=== PATIENT | female | born 1950 | race Caucasian/White ===

== ENCOUNTER 2019-03-18 13:55 | Outpatient (CLI) | payer MEDICARE, OTHER ==
--- NOTE | 2019-03-18 14:23 | MMO ---
Bilateral MAMMO Bilat Screen [facility]. CLINICAL HISTORY: Patient is 69 years old and is seen for screening. VIEWS: The views performed were: bilateral craniocaudal with tomosynthesis and bilateral mediolateral oblique with tomosynthesis. This study has been interpreted with the assistance of computer-aided detection. MAMMOGRAM FINDINGS: The breasts are heterogeneously dense, which could obscure a lesion on mammography. There are benign appearing calcifications seen in both breasts. There are no suspicious masses, suspicious calcifications, or areas of architectural distortion. IMPRESSION: THERE IS NO MAMMOGRAPHIC EVIDENCE OF MALIGNANCY. A ROUTINE FOLLOW-UP MAMMOGRAM IN 1 YEAR IS RECOMMENDED. THE RESULTS OF THIS EXAM WERE SENT TO THE PATIENT. ACR BI-RADS Category 2 - Benign finding MAMMOGRAPHY NOTE: 1. A negative mammogram report should not delay a biopsy if a dominant of clinically suspicious mass is present. 2. Approximately 10% to 15% of breast cancers are not detected by mammography. 3. Adenosis and dense breasts may obscure an underlying neoplasm. Reported by: PHAM BURLESON MD Electonically Signed: [id number]
--- NOTE | 2019-03-18 14:57 | BD ---
DEXA SCAN: 03/18/2019 PROVIDED CLINICAL HISTORY: Postmenopausal screening. FINDINGS: LUMBAR SPINE BMD (g/cm2) T-SCORE L1 0.855 -1.2 L2 0.956 -0.7 L3 0.973 -1.0 L4 0.899 -1.5 TOTAL 0.924 -1.1 FEMORAL NECK 0.627 -2.0 TOTAL 0.753 -1.6 The ten year fracture risk for a major osteoporotic fracture is 10% and for a hip fracture is 1.6%. IMPRESSION: The calculated bone mineral density meets WHO criteria for osteopenia and places the patient at incre ased risk for fracture. POS: OFF
== END 2019-03-18 13:56 | disposition home or self-care (01) ==
LOC: BICMAMMO 13:55
PROVIDERS: ATTEND Specialist
DX: Z12.31 Encounter for screening mammogram for malignant neoplasm of breast (principal); M81.0 Age-related osteoporosis without current pathological fracture; M85.89 Other specified disorders of bone density and structure, multiple sites
CPT/HCPCS: 77063; 77067; 77080

== ENCOUNTER 2020-06-16 14:43 | Outpatient (CLI) | payer MEDICARE, OTHER ==
[~2020-06-16 14:43] MED LIST: Magnevist 469MG/ML 20 ML VIAL ONE
--- NOTE | 2020-06-16 16:40 | MRI ---
MRI OF THE BRAIN WITH AND WITHOUT IV CONTRAST: 06/16/20 HISTORY: Memory loss. COMPARISON: 04/08/07. FINDINGS: There is a tiny focus of restricted diffusion in the anteromedial aspect of the right frontal lobe. T here are a few foci of T2 prolongation of the periventricular and subcortical white matter consistent with minimal chronic small vessel ischemic disease. The ventricular size is appropriate and the basi lar cisterns patent. No hemorrhage, midline shift, or abnormal extra-axial fluid collections are seen . No mass or abnormal postcontrast enhancement is noted. The visualized paranasal sinuses and mastoid air cells are well aerated. IMPRESSION: 1. Tiny acute lacunar infarct in the right frontal lobe. 2. No evidence of intracranial mass. POS: OFF
== END 2020-06-16 14:44 | disposition home or self-care (01) ==
LOC: BICMRI 14:43
PROVIDERS: ATTEND Specialist
DX: R41.3 Other amnesia (principal); I63.81 Other cerebral infarction due to occlusion or stenosis of small artery
CPT/HCPCS: 70553; 82565; A9579

== ENCOUNTER 2021-04-06 09:07 | Day surgery (SDC) | payer MEDICARE, OTHER ==
[2021-04-06 09:41] VITALS: BMI 22.8
[2021-04-06 11:03] VITALS: TEMP 98.7
[2021-04-06 11:40] VITALS: BP 167/87
[2021-04-06 13:43] LABS: Ref Lab Test Ordered BETA AMYLOID 42/40; Reference Lab Name LABCORP
== END 2021-04-06 11:40 | disposition home or self-care (01) ==
LOC: RAD 09:07
PROVIDERS: ATTEND Specialist
PROC: 009U3ZX Drainage of Spinal Canal, Percutaneous Approach, Diagnostic (ICD-10-PCS; principal; 2021-04-06)
DX: G30.9 Alzheimer's disease, unspecified (principal); F02.80 Dementia in other diseases classified elsewhere, unspecified severity, without behavioral disturbance, psychotic disturbance, mood disturbance, and anxiety; M43.16 Spondylolisthesis, lumbar region; N95.9 Unspecified menopausal and perimenopausal disorder; F41.1 Generalized anxiety disorder; I95.1 Orthostatic hypotension; Z88.0 Allergy status to penicillin; Z88.2 Allergy status to sulfonamides; Z88.5 Allergy status to narcotic agent; Z88.8 Allergy status to other drugs, medicaments and biological substances
CPT/HCPCS: 62270

== ENCOUNTER 2022-01-11 12:24 | Outpatient (CLI) | payer MEDICARE | END 2022-01-11 12:25 | disposition home or self-care (01) | LOC: SCSMRI 12:24 | PROVIDERS: ATTEND Specialist | DX: F03.90 Unspecified dementia, unspecified severity, without behavioral disturbance, psychotic disturbance, mood disturbance, and anxiety (principal) | CPT/HCPCS: 70553 ==

== ENCOUNTER 2022-08-29 00:07 | Observation (INO) | payer MEDICARE ==
[2022-08-29 00:44] LABS: Hemoglobin 12.3 g/dL (12.0-16.0); Mean Corpuscular HGB CONC 34.4 g/dL (32.0-36.0); Mean Corpuscular Hemoglobin 30.8 pg (27.0-31.0); Mean Corpuscular Volume 89.6 fl (78.0-98.0); Mean Platelet Volume 5.9 fL (7.4-10.4); Platelet Count 342 10x3/uL (130-400); RBC Distribution Width 12.1 % (11.5-14.5); Red Blood Cell (RBC) Count 3.99 mill/uL (4.20-5.40); White Blood Cell (WBC) Count 9.8 10x3/uL (4.8-10.8)
[2022-08-29 01:02] LABS: ALT (SGPT) 15 U/L (8-55); AST (SGOT) 18 U/L (5-34); Albumin 4.2 g/dL (3.4-4.8); Alkaline Phosphatase 58 U/L (40-110); Anion Gap 14 mmol/L (10-20); BUN (Urea Nitrogen) 10 mg/dL (9.8-20.1); Bilirubin, Total 0.3 mg/dL (0.2-1.2); Calc. Creatinine Clearance 0 mL/min (70-130); Calcium 9.5 mg/dL (7.8-10.44); Carbon Dioxide 24 mmol/L (23-31); Chloride 101 mmol/L (98-107); Estimated GFR 74; Globulin 2.2 g/dL (2.4-3.5); Glucose 106 mg/dL (80-115); Potassium 3.5 mmol/L (3.5-5.1); Protein, Total 6.4 g/dL (5.8-8.1); Sodium 135 mmol/L (136-145)
[2022-08-29 01:07] LABS: Eosinophils 1 % (0-10); Lymphocytes 44 % (21-51); MDiff Complete? YES; Monocytes 2 % (0-10); Neutrophil 38 % (42-75); Reactive Lymphocytes 15 % (0-10)
[2022-08-29] MEDS ORDERED: Aspirin Chewable 81 MG TAB ONE (02:11)
[2022-08-29 05:04] LABS: Troponin I Less than 0.010 ng/mL (< 0.028)
[2022-08-29 05:34] VITALS: BMI 24.1
[2022-08-29] MEDS ORDERED: Ondansetron ODT 4 MG TAB SL PRN (05:45)
[2022-08-29] MEDS ORDERED: Ondansetron PF 4 MG/2 ML Vial IVP PRN (05:45)
[2022-08-29] MEDS ORDERED: Acetaminophen 325 MG TAB PO PRN (05:45)
[2022-08-29] MEDS ORDERED: Zolpidem Tartrate 5 MG TAB PO PRN (07:57)
[2022-08-29] MEDS ORDERED: Ipratropium/Albuterol 3 ML NEB NEB PRN (08:15)
[2022-08-29] MEDS ORDERED: Nitroglycerin 0.4 MG TAB (25 Tab Bottle) SL PRN (08:19)
[2022-08-29] MEDS ORDERED: traZODone HCl 50 MG TAB PO PRN (08:39)
[2022-08-29 08:42] LABS: Troponin I Less than 0.010 ng/mL (< 0.028)
[2022-08-29] MEDS ORDERED: Lorazepam 2 MG/ML VIAL SLOW IVP SCH (08:45)
[2022-08-29] MEDS ORDERED: DULoxetine 60 MG CAP PO SCH (09:00)
[2022-08-29] MEDS ORDERED: Losartan 25 MG TAB PO SCH (09:00)
[2022-08-29] MEDS ORDERED: Famotidine 20 MG TAB PO SCH (09:00)
[2022-08-29] MEDS ORDERED: Ezetimibe 10 MG TAB PO SCH (09:00)
[2022-08-29] MEDS ORDERED: Lorazepam 2 MG/ML VIAL SLOW IVP PRN (14:45)
[2022-08-29 15:48] VITALS: BP 138/74; TEMP 97.8
[2022-08-29] MEDS ORDERED: Carvedilol 6.25 MG TAB PO SCH (17:00)
[2022-08-29] MEDS ORDERED: Mometasone 200 MCG/Formoterol 5 MCG 120 PUFF INHALER INH SCH (18:30)
== END 2022-08-29 16:20 | disposition home or self-care (01) ==
LOC: ERS 00:07 → 2SW 04:06
PROVIDERS: ADMIT Specialist; ATTEND Specialist
DX: R07.9 Chest pain, unspecified (principal); R06.02 Shortness of breath; F41.1 Generalized anxiety disorder; I25.2 Old myocardial infarction; E78.5 Hyperlipidemia, unspecified; I10 Essential (primary) hypertension; G30.9 Alzheimer's disease, unspecified; F02.80 Dementia in other diseases classified elsewhere, unspecified severity, without behavioral disturbance, psychotic disturbance, mood disturbance, and anxiety; J45.909 Unspecified asthma, uncomplicated; M81.0 Age-related osteoporosis without current pathological fracture; K21.9 Gastro-esophageal reflux disease without esophagitis; Z79.82 Long term (current) use of aspirin; Z79.83 Long term (current) use of bisphosphonates; Z79.899 Other long term (current) drug therapy; Z88.0 Allergy status to penicillin; Z88.2 Allergy status to sulfonamides; Z88.5 Allergy status to narcotic agent; Z88.8 Allergy status to other drugs, medicaments and biological substances
CPT/HCPCS: 36415; 71045; 80053; 83880; 84484; 85025; 85379; 93005; 93306; 96372; 96374; G0378; J1650; J2060

== ENCOUNTER 2022-09-07 15:11 | Emergency (ER) | payer MEDICARE ==
[2022-09-07 16:34] LABS: #Basophils 0.1 thou/uL (0.0-0.2); #Eosinphils 0.2 thou/uL (0.0-0.7); #Monocytes 0.5 thou/uL (0.11-0.59); #Neutrophils 4.8 thou/uL (1.40-6.50); %Basophils 0.7 % (0.0-1.0); %Eosinophils 2.6 % (0.0-10.0); %Lymphocytes 33.1 % (21.0-51.0); %Monocytes 6.1 % (0.0-10.0); %Neutrophils 57.3 % (42.0-75.0); Mean Corpuscular HGB CONC 33.2 g/dL (32.0-36.0); Mean Corpuscular Hemoglobin 29.5 pg (27.0-31.0); Mean Corpuscular Volume 88.7 fl (78.0-98.0); Mean Platelet Volume 8.2 fL (7.4-10.4); Platelet Count 300 10x3/uL (130-400); RBC Distribution Width 13.2 % (11.5-14.5); Red Blood Cell (RBC) Count 4.41 mill/uL (4.20-5.40); White Blood Cell (WBC) Count 8.3 10x3/uL (4.8-10.8)
[2022-09-07 16:57] LABS: ALT (SGPT) 21 U/L (8-55); AST (SGOT) 25 U/L (5-34); Albumin 4.7 g/dL (3.4-4.8); Alkaline Phosphatase 55 U/L (40-110); Anion Gap 15 mmol/L (10-20); BUN (Urea Nitrogen) 15 mg/dL (9.8-20.1); Bilirubin, Total 0.4 mg/dL (0.2-1.2); Calc. Creatinine Clearance 0 mL/min (70-130); Calcium 9.7 mg/dL (7.8-10.44); Carbon Dioxide 23 mmol/L (23-31); Chloride 99 mmol/L (98-107); Estimated GFR 53; Globulin 2.5 g/dL (2.4-3.5); Glucose 86 mg/dL (80-115); Lipase 54 U/L (8-78); Potassium 4.1 mmol/L (3.5-5.1); Protein, Total 7.2 g/dL (5.8-8.1); Sodium 133 mmol/L (136-145)
[2022-09-07] MEDS ORDERED: Lorazepam 1 MG TAB ONE (17:00)
[2022-09-07 18:27] LABS: Bacteria/HPF None Seen HPF (None Seen); Bilirubin Negative (Negative); Blood, Urine 1+ (Negative); Clarity Clear (Clear); Glucose, Urine (Dipstick) Normal (Negative); Ketone, Urine Negative (Negative); Leukocyte Negative Leu/uL (Negative); Nitrite Negative (Negative); Protein, Urine (Dipstick) Negative (Neg-Trace); RBC/HPF 0-3 HPF (0-3); Specific Gravity, Urine 1.005 (1.002-1.036); Squamous Epithelial None Seen HPF (0-3); Urobilinogen Normal mg/dL (Less than 2); WBC/HPF 0-3 HPF (0-3); pH, Urine 5.5 (5.0-9.0)
== END 2022-09-07 18:43 | disposition home or self-care (01) ==
LOC: ERS 15:11
DX: F41.9 Anxiety disorder, unspecified (principal)
CPT/HCPCS: 71045; 80053; 81003; 81015; 83690; 84484; 85025; 93005; 94760

== ENCOUNTER 2023-11-05 21:21 | Emergency (ER) | payer MEDICARE ==
[2023-11-06 00:17] LABS: #Basophils 0.05 10x3/uL (0.0-0.2); %Basophils 0.4 % (0.0-1.0); %Eosinophils 1.3 % (0.0-10.0); %Monocytes 7.3 % (0.0-10.0); %Neutrophils 64.7 % (42.0-75.0); Hematocrit 37.3 % (36.0-47.0); Hemoglobin 12.3 g/dL (12.0-16.0); Mean Corpuscular Hemoglobin 29.1 pg (27.0-31.0); Mean Corpuscular Volume 88.2 fL (78.0-98.0); Mean Platelet Volume 9.3 fL (7.4-10.4); Platelet Count 240 10x3/uL (130-400); RBC Distribution Width 13.2 % (11.5-14.5); Red Blood Cell (RBC) Count 4.23 mill/uL (4.20-5.40)
[2023-11-06 00:23] LABS: INR-International Normal Ratio 1.1; Prothrombin Time 13.8 sec (12.0-14.7)
[2023-11-06 00:24] LABS: PTT 27.5 sec (22.9-36.1)
[2023-11-06 00:28] LABS: ALT (SGPT) 19 U/L (8-55); AST (SGOT) 35 U/L (5-34); Albumin 4.2 g/dL (3.4-4.8); Alkaline Phosphatase 32 U/L (40-110); Anion Gap 21 mmol/L (10-20); BUN (Urea Nitrogen) 28 mg/dL (9.8-20.1); Bilirubin, Total 0.5 mg/dL (0.2-1.2); Calc. Creatinine Clearance 0 mL/min (70-130); Calcium 9.6 mg/dL (7.8-10.44); Carbon Dioxide 17 mmol/L (23-31); Chloride 101 mmol/L (98-107); Estimated GFR 45; Globulin 1.8 g/dL (2.4-3.5); Glucose 59 mg/dL (83-110); Lipase 32 U/L (8-78); Sodium 135 mmol/L (136-145)
[2023-11-06 00:38] LABS: Troponin I 0.011 ng/mL (< 0.028)
[2023-11-06 03:05] LABS: Bacteria/HPF None Seen HPF (None Seen); Bilirubin Negative (Negative); Blood, Urine Negative (Negative); CAUTI Indications for Culture Dysuria,urgency,freq; Clarity Clear (Clear); Glucose, Urine (Dipstick) Normal (Negative); Ketone, Urine 40 mg/dL (Negative); Leukocyte 25 Leu/uL (Negative); Nitrite Negative (Negative); Protein, Urine (Dipstick) Negative (Neg-Trace); RBC/HPF 0-3 HPF (0-3); Specific Gravity, Urine 1.007 (1.002-1.036); Squamous Epithelial None Seen HPF (0-3); Urobilinogen Normal mg/dL (Less than 2); WBC/HPF 0-3 HPF (0-3)
[2023-11-06 03:08] LABS: Urine Culture Reflex No No
[2023-11-06] MEDS ORDERED: Docusate 100 MG CAP PO SCH (04:00)
[2023-11-06] MEDS ORDERED: Iopamidol-370 76% 500 ML MDV (1 ML CHARGE) ONE (10:53)
== END 2023-11-06 03:53 | disposition home or self-care (01) ==
LOC: ERS 21:21
DX: K62.5 Hemorrhage of anus and rectum (principal); N17.9 Acute kidney failure, unspecified; E16.2 Hypoglycemia, unspecified; I10 Essential (primary) hypertension; F03.90 Unspecified dementia, unspecified severity, without behavioral disturbance, psychotic disturbance, mood disturbance, and anxiety; I42.9 Cardiomyopathy, unspecified
CPT/HCPCS: 74177; 80053; 81001; 83690; 84484; 85025; 85610; 85730; 86850; 86900; 86901; 93005; Q9967; 36415; 82274

== ENCOUNTER 2024-01-28 15:07 | Outpatient (CLI) | payer MEDICARE | END 2024-01-28 15:08 | disposition home or self-care (01) | LOC: SCSMRI 15:07 | PROVIDERS: ATTEND Specialist | DX: G30.9 Alzheimer's disease, unspecified (principal); I67.89 Other cerebrovascular disease; R93.0 Abnormal findings on diagnostic imaging of skull and head, not elsewhere classified | CPT/HCPCS: 36415; 70553; 76376; 82565 ==

== ENCOUNTER 2024-02-19 14:53 | Outpatient (CLI) | payer MEDICARE | END 2024-02-19 14:54 | disposition home or self-care (01) | LOC: SCSMRI 14:53 | PROVIDERS: ATTEND Specialist | DX: G30.9 Alzheimer's disease, unspecified (principal); F02.80 Dementia in other diseases classified elsewhere, unspecified severity, without behavioral disturbance, psychotic disturbance, mood disturbance, and anxiety | CPT/HCPCS: 70553; 76376 ==

== ENCOUNTER 2024-12-09 12:30 | Outpatient (CLI) | payer MEDICARE ==
[2024-12-09 13:08] LABS: Estimated GFR - POC 44.0
== END 2024-12-09 12:31 | disposition home or self-care (01) ==
LOC: SCSMRI 12:30
PROVIDERS: ATTEND Specialist
DX: G30.9 Alzheimer's disease, unspecified (principal); I67.82 Cerebral ischemia; R90.82 White matter disease, unspecified; R90.89 Other abnormal findings on diagnostic imaging of central nervous system; G93.89 Other specified disorders of brain
CPT/HCPCS: 36415; 70553; 76376; 82565

== ENCOUNTER 2025-02-28 13:54 | Outpatient (CLI) | payer MEDICARE ==
[2025-02-28 14:30] LABS: Estimated GFR - POC 48.0
== END 2025-02-28 13:55 | disposition home or self-care (01) ==
LOC: SCSMRI 13:54
PROVIDERS: ATTEND Specialist
DX: G30.9 Alzheimer's disease, unspecified (principal); R90.82 White matter disease, unspecified
CPT/HCPCS: 36415; 70553; 76376; 82565

== ENCOUNTER 2025-03-10 13:27 | Outpatient (CLI) | payer MEDICARE ==
[2025-03-10] MEDS ORDERED: E-Z-HD 98% W/W 340GM BOT (x-ray ONLY) ONE (13:46)
[2025-03-10] MEDS ORDERED: Barium Sulfate 96% 176 GM BOT (xray ONLY) ONE (13:46)
== END 2025-03-10 13:28 | disposition home or self-care (01) ==
LOC: RAD 13:27
PROVIDERS: ATTEND Specialist
DX: G30.9 Alzheimer's disease, unspecified (principal); R13.10 Dysphagia, unspecified; M25.78 Osteophyte, vertebrae; M48.02 Spinal stenosis, cervical region; K22.89 Other specified disease of esophagus
CPT/HCPCS: 74220